=== PATIENT | female | born 1995 | race Caucasian/White ===

== ENCOUNTER 2016-03-28 22:25 | Emergency (ER) | payer BC ==
--- NOTE | 2016-03-28 23:00 | Emergency Department Record ---
History of Present Illness - General Chief Complaint: Ankle/Foot Injury Stated Complaint: TOE INJURY Time Seen by Provider: 03/28/16 22:57 Source: Patient Mode of Arrival: Ambulatory - History of Present Illness Initial Comments: The patient was pole dancing when she fell and landed on the top of her right foot, injuring her second toe in the process. She denies other injury, and denies prior injury. Complaint: Other (toe injury) Onset/Timin -: Hour(s) Place: Home Severity scale (1-10): 10 Context: Fall Associated Symptoms: Snap/pop sensation, Unable to bear weight - Related Data Home Medications Medication Instructions Recorded Confirmed Last Taken Alprazolam [Alprazolam] 0.5 mg PO Q6H PRN 03/28/16 03/28/16 Unknown Ibuprofen [Motrin] 800 mg PO Q8H PRN 03/28/16 03/28/16 Unknown Sertraline HCl [Zoloft] 50 mg PO DAILY 03/28/16 03/28/16 Unknown Previous Rx's Medication Instructions Recorded Hydrocodone/Acetaminophen [[place] 1 tab PO Q8H PRN #4 tab 03/29/16 5mg/325mg] Allergies Allergy/AdvReac Type Severity Reaction Status Date / Time No Known Drug Allergies Allergy Verified 03/28/16 22:47 Travel Screening - Travel/Exposure Within Last 30 Days Have you traveled within the last 30 days?: No Review of Systems Reviewed: No additional complaints except as noted below Constitutional: Reports: As per HPI. Denies: Chills, Fever, Malaise, Night sweats, Weakness, Weight change Eyes: Reports: As per HPI. Denies: Eye discharge, Eye pain, Photophobia, Vision change ENT: Reports: As per HPI. Denies: Congestion, Dental pain, Ear pain, Epistaxis , Hearing loss, Throat pain Respiratory: Reports: As per HPI. Denies: Cough, Dyspnea, Hemoptysis, Stridor, Wheezes Cardiovascular: Reports: As per HPI. Denies: Arrhythmia, Chest pain, Dyspnea on exertion, Edema, Murmurs, Orthopnea, Palpitations, Paroxysmal nocturnal dyspnea, Rheumatic Fever, Syncope Endocrine: Reports: As per HPI. Denies: Fatigue, Heat or cold intolerance, Polydipsia, Polyuria Gastrointestinal: Reports: As per HPI. Denies: Abdominal pain, Constipation, Diarrhea, Hematemesis, Hematochezia, Melena, Nausea, Vomiting Genitourinary: Reports: As per HPI. Denies: Abnormal menses, Discharge, Dyspareunia, Dysuria, Frequency, Hematuria, Incontinence, Retention, Urgency Musculoskeletal: Reports: As per HPI. Denies: Arthralgia, Back pain, Gout, Joint swelling, Myalgia, Neck pain Skin: Reports: As per HPI. Denies: Bruising, Change in color, Change in hair/ nails, Lesions, Pruritus, Rash Neurological: Reports: As per HPI. Denies: Abnormal gait, Confusion, Headache, Numbness, Paresthesias, Seizure, Tingling, Tremors, Vertigo, Weakness Psychiatric: Reports: As per HPI. Denies: Anxiety, Auditory hallucinations, Depression, Homicidal thoughts, Suicidal thoughts, Visual hallucinations Hematological/Lymphatic: Reports: As per HPI. Denies: Anemia, Blood Clots, Easy bleeding, Easy bruising, Swollen glands Past Medical History - SOCIAL HISTORY Smoking Status: Never smoker Alcohol Use: None Drug Use: None - RESPIRATORY Hx Respiratory Disorders: No - CARDIOVASCULAR Hx Cardio Disorders: No - NEURO Hx Neuro Disorders: No - GI Hx GI Disorders: No - Hx Genitourinary Disorders: No - ENDOCRINE Hx Endocrine Disorders: No - MUSCULOSKELETAL Hx Musculoskeletal Disorders: No - PSYCH Hx Psych Problems: No - HEMATOLOGY/ONCOLOGY Hx Hematology/Oncology Disorders: No Family Medical History Any Significant Family History?: No Physical Exam - General General Appearance: Alert, Oriented x3, Cooperative, Mild distress - Head Head exam: Normal inspection - Eye Eye exam: Normal appearance, PERRL Pupils: Normal accommodation - ENT ENT exam: Normal exam, Normal external ear exam, Normal orophraynx Ear exam: Normal external inspection. negative: External canal tenderness Nasal Exam: Normal inspection. negative: Discharge, Sinus tenderness Mouth exam: Normal external inspection Teeth exam: negative: Dental caries Throat exam: Normal inspection. negative: Tonsillar erythema, Tonsillar exudate - Neck Neck exam: Normal inspection, Full ROM. negative: Tenderness - Respiratory Respiratory exam: negative: Respiratory distress - Cardiovascular Cardiovascular Exam: Regular rate, Normal rhythm - GI/Abdominal GI/Abdominal exam: Soft. negative: Tenderness - Rectal Rectal exam: Deferred - exam: Deferred - Extremities Extremities exam: Normal inspection, Full ROM, Normal capillary refill, Tenderness (tenderness with deformity to second toe right foot) - Back Back exam: Reports: Normal inspection, Full ROM. Denies: Muscle spasm, Rash noted, Tenderness - Neurological Neurological exam: Alert, Normal gait, Oriented X3, Reflexes normal - Psychiatric Psychiatric exam: Normal affect, Normal mood - Skin Skin exam: Dry, Intact, Normal color, Warm Course Vital Signs 03/28/16 22:38 Temperature 99 F Pulse Rate [ 86 Pulse Ox Probe] Respiratory 20 Rate Blood Pressure 122/82 [Left Arm] Pulse Ox 96 - Reevaluation(s) Reevaluation #1: PROCEDURE: In line traction of right second toe with a "pop" and lessening of deformity. Patient sent for post reduction xrays. 03/28/16 23:41 Reevaluation #2: Post reduction in line, no fracture seen as preliminary reading. Patient aware reading only preliminary. 03/29/16 00:18 Medical Decision Making - Management Options MDM Management: No Additional Work-up Planned - Data Complexity MDM Data: X-Ray Ordered and/or Reviewed (No fx seen, toe reduction successful) Disposition Disposition: Discharge Clinical Impression: Dislocation of toe of right foot Qualifiers: Encounter type: initial encounter Qualified Code(s): S93.104A - Unspecified dislocation of right toe(s), initial encounter Disposition: Home, Self-Care Condition: (1) Good Instructions: Contusion in Adults, Qa Reviewer (GEN) Additional Instructions: Naun tape toes. Ice, elevate. Post op shoe. Tylenol or ibuprofen as directed as needed for pain. [place] every 8 hours only if needed for severe pain. Follow up with PCP as needed for work restrictions, rechecks. Prescriptions: Hydrocodone/Acetaminophen [[place] 5mg/325mg] 1 tab PO Q8H PRN #4 tab PRN Reason: Pain - General Forms: Patient Portal Access
[2016-03-28] MEDS: HYDROCODONE/APAP 5/325MG TABLET PO ONE (23:25)
[2016-03-29] MEDS: HYDROCODONE/APAP 5/325MG TABLET PO ONE (00:21)
--- NOTE | 2016-04-02 09:16 | RADIOLOGY REPORT ---
EXAM: RIGHT FOOT, THREE VIEWS HISTORY: FALL WHILE DANCING. RIGHT SECOND TOE PAIN. TECHNIQUE: Three views of the right foot were obtained. FINDINGS: There appears to be subluxation/dislocation involving the second PIP joint. Otherwise no clearly acute osseous abnormality is seen. IMPRESSION: SUBLUXATION INVOLVING THE SECOND PIP JOINT. JOB NUMBER: [id number] [facility]
--- NOTE | 2016-04-02 09:17 | RADIOLOGY REPORT ---
EXAM: RIGHT SECOND TOE, THREE VIEWS HISTORY: POST REDUCTION. TECHNIQUE: Three views of the right second toe were obtained. FINDINGS: The bones, joints, and soft tissues are unremarkable. No fracture or malalignment is seen. IMPRESSION: NO ACUTE RIGHT SECOND TOE ABNORMALITY. INTERVAL REDUCTION. JOB NUMBER: [id number] MTDD
== END 2016-03-29 00:25 | disposition home or self-care (01) ==
LOC: ER 22:25
DX: S93.114A Dislocation of interphalangeal joint of right lesser toe(s), initial encounter (principal); W17.89XA Other fall from one level to another, initial encounter; Y93.41 Activity, dancing; Y92.009 Unspecified place in unspecified non-institutional (private) residence as the place of occurrence of the external cause
CPT/HCPCS: 28660; 73660; 99283; 99284